=== PATIENT | male | born 1965 | race Caucasian/White ===

== ENCOUNTER 2024-07-21 01:16 | Day surgery (SDC) | payer OTHER, SELFPAY ==
[2024-07-19 13:03] VITALS: BMI 21.4
--- NOTE | 2024-07-19 13:13 | PC.NURSE ---
Report to the Outpatient Waiting Room, entrance under the green pavilion located off [facility], at time _1pm_ on date _[id number]_. Planned Procedure Time: _3pm_.? Time changes happen often and if your time is changed the preop area will call you the afternoon before. - You and your visitor will be asked to self-screen and do not enter if you have any COVID symptoms. Please call surgeon if you need to reschedule. - A mask is optional within the hospital at this time. Patients may have clear liquids (water, carbonated beverages, clear teas, apple juice) until 3 hours prior to surgery with a maximum of 20 ounces. - No food from midnight until time of surgery and no smoking, or chewing tobacco (or any form of nicotine). No chewing gum, candy or mints. Take only the following medications with a SIP of water on the morning of surgery: ___None____ DO NOT STOP ANY OF YOUR OTHER PRESCRIPTION MEDICATIONS PRIOR TO SURGERY EXCEPT THE FOLLOWING Hold all vitamins and supplements for 3 days per anesthesiologist. Medications to discontinue per physician Date to take last dose___Stop now.___ Please no make-up, nail kazakh, hairspray, perfume, deodorant, or body powder the day of surgery.? No jewelry (including any body piercings) or valuables the day of surgery, leave them at home.? Please take a shower or bath the night before, or the morning of, surgery with an antibacterial soap.? Wear comfortable, loose fitting clothing.? - Jewelry must be removed prior to entering the operating room.? Rings and piercings that are not removed may be cut off. - The hospital will not accept responsibility for valuables.? - Please leave all valuables, including medications, at home the day of surgery. If you are going home after surgery, a licensed [facility] driver must drive you home.? - NO public transportation without another adult if you receive anesthesia. - We recommend that an adult stay with you for 24 hours following discharge. - We also recommend that you do not drive, make important decision, drink alcoholic beverages, or take any drugs that were not prescribed by your health care provider for at least 24 hours after your discharge time. Follow any additional instructions given to you from your surgeon. Telephone instructions given to __Sal___and asked if any additional questions and then verbalized understanding. Patient advised to call surgeon office or pre surgery nurse liaison [phone] if any additional questions.
[2024-07-21] VITALS (8 sets, daily range): BP systolic 113–173; BP diastolic 74–90; PULSE 54–68; RESP 12–18; TEMP 36.2–36.7; O2SAT 95–100
--- OUTSIDE RECORDS SUMMARY | 2024-07-21 01:29 | XMS_ITS | Referral Summary ---
Author Organization [facility] Address [address] [place] [address] Care Team Providers Care Files Supervisor Name Role Phone Dionicio Skinner DPT Unavailable [phone] Nash Monterroso MD Primary Care Provider Encounters Date Type Department Care Team Description 07/03/2024 4:42 PM CDT - 07/03/2024 11:59 PM CDT Hospital Encounter [facility] [address] [place] [phone] Discharge Disposition: Discharge to home or self care 07/03/2024 11:10 AM CDT Office Visit [facility] [address] [place] [address] 2nd Floor [address] [place] [phone] Nash Fletcher MD Left knee pain, unspecified chronicity (Primary Dx) 06/27/2024 6:30 AM CDT Telemedicine [facility] [address] [facility] [address] [place] [phone] Colt Brock MD Left without seen 06/06/2024 Orders Only [facility] [address] [place] [address] 2nd Floor [address] [place] [address] Nash Fletcher MD Left knee pain, unspecified chronicity 06/05/2024 3:50 PM CDT Office Visit [facility] [address] [place] [address] 2nd [address] [place] [address] Nash Fletcher MD Left knee pain, unspecified chronicity (Primary Dx) 06/02/2024 Telephone [facility] [address] [place] [address] [address]nd [address] [place] [phone] Nash Fletcher MD 06/01/2024 Telephone [facility] [address] [place] [address] 2nd [address] [place] [phone] Nash Fletcher MD 05/29/2024 7:58 AM CDT - 05/29/2024 11:59 PM CDT Hospital Encounter [facility] [address] [place] [phone] Nash Fletcher MD Left knee pain, unspecified chronicity Discharge Disposition: Discharge to home or self care 05/29/2024 7:50 AM CDT Office Visit [facility] [address] [place] [address] Floor [address] [place] [phone] Nash Fletcher MD Left knee pain, unspecified chronicity (Primary Dx); Right knee pain, unspecified chronicity 05/12/2024 Results Follow-Up [address] [phone] Dorothy Phipps NP Thyroid Function [place], Lipid panel, Hemoglobin A1c, Additional followed-up results: 5 05/10/2024 6:05 PM CDT Lab [facility] ([facility]) [address] [place] [phone] Screening for thyroid disorder; Screening for lipid disorders; Screening for diabetes mellitus; Screening for metabolic disorder; Screening for deficiency anemia; Screening for prostate cancer 05/10/2024 2:45 PM CDT Office Visit [address] [phone] Dorothy Phipps NP Sleep disturbance (Primary Dx); Preventative health care; Erectile disorder; Unequal pupil diameter; Hyperbilirubinemia; Screening for prostate cancer; Aneurysm of descending thoracic aorta without rupture; Need for vaccination; Screening for deficiency anemia; Screening for metabolic disorder; Screening for diabetes mellitus; Screening for lipid disorders; Screening for thyroid disorder from Last 3 Months Allergies No known active allergies Medications sildenafiL (VIAGRA) 25 mg tablet Take 1 tablet (25 mg total) by mouth as needed for erectile dysfunction 4 Active zolpidem (AMBIEN) 5 mg tabletIndication s:Insomnia, unspecified type Take 1 tablet (5 mg total) by mouth nightly as needed for sleep 20 tablet 5 08/14/19 25 Active Hospital, Clinic, or Other Facility Administered Medication Ordered Dose Route Frequency Start Date End Date Status BUPivacaine HCl (MARCAINE) 0.25 % (2.5 mg/mL) injection 5 mLIndications:Left knee pain, unspecified chronicity 5 mL OTHER One-Time Injection 07/03/2024 07/03/2024 Ended triamcinolone (KENALOG) 40 mg/mL injection 40 mgIndications:Left knee pain, unspecified chronicity 40 mg intra-artic One-Time Injection 07/03/2024 07/03/2024 Ended Active Problems Problem Noted Date Diagnosed Date 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 Rpt in 5 yrs. 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): Current on influenza vaccination Lipids and A1C reviewed, both at goal today Weight stable, maintain diet and activity Colonoscopy due Feb 2020, order to be faxed to [facility] Need for prophylactic vaccin ation and inoculation against rabies 08/23/2013 01/26/2022 Immunizations Immunization Administration Dates Next Due Influenza, Quadrivalent, Trudi l Culture-based MDCK, Preservative Free, Antibiotic Free, Intramuscular 11/19/2019 Influenza, Quadrivalent, Spl it, Preservative Free, Intramuscular 12/03/2021,01/06/2021,12/07/2017 Influenza, Trivalent, Preser vative Free, Intramuscular 11/28/2014 Influenza, Unspecified 12/27/2018,10/23/2015 Pfizer SARS-CoV-2 Monovalent Vaccination (12+ Yrs) PURPLE 06/05/2020,05/15/2020 Rabies Vaccine 09/07/2013,08/31/2013,08/23/2013 Tdap 05/10/2024 Social History Tobacco Use Types Packs/Day Years Used Date Smoking Tobacco: Never Smokeless Tobacco: Never PHQ-2 Answer Date Recorded PHQ-2 Total Score (If total score is 3 or more points, staff should administer the PHQ-9) 0 05/10/2024 Sex and Gender Information Value Date Recorded Sex Assigned at Not on file Legal Sex Male 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 Gender Identity Not on file Sexual Orientation Not on file Occupation Industry Job Start Date Job End Date Not on file Not on file Not on file Not on file Last Filed Vital Signs Vital Sign Reading Time Taken Comments Blood Pressure 159/97 05/10/2024 2:33 PM CDT Pulse 53 05/10/2024 2:33 PM CDT Temperature 36.9 C (98.4 F) 05/10/2024 2:33 PM CDT Respiratory Rate 18 04/07/2019 1:42 PM ODD JOB WORKER Oxygen Saturation 99% 05/10/2024 2:33 PM CDT Inhaled Oxygen Concentration - - Weight 71.8 kg (158 lb 6.4 oz) 05/10/2024 2:33 P M CDT Height 179.1 cm (5' 10.5) 05/10/2024 2:33 PM CD T Body Mass Index 22.41 05/10/2024 2:33 PM CDT Plan of Treatment Not on file Procedures Procedure Name Priority Date/Time Associated Diagnosis Comments MARLENI MR OUTSIDE REFERENCE Routine 07/03/2024 4:42 PM CDT [place] ARTHROCENTESIS ASPIR&/INJ MAJOR JT/BURSA W/O US Routine 07/03/2024 11:10 AM CDT Left knee pain, unspecified chronicity MRI KNEE LEFT WO CONTRAST Schedule Routine, Read Routine (OP Routine) 06/06/2024 10:50 AM CDT Left knee pain, unspecified chronicity XR KNEE LEFT 3 VIEWS Schedule Routine, Read Routine (OP Routine) 05/29/2024 8:07 AM CDT Left knee pain, unspecified chronicity EGFR Routine 05/10/2024 3:58 PM CDT Screening for metabolic disorder DIFFERENTIAL AUTO Routine 05/10/2024 3:5 8 PM CDT Screening for deficiency anemia PSA SCREEN Routine 05/10/2024 3:58 PM CDT Screening for prostate cancer CBC WITH AUTO DIFFERENTIAL Routine 05/10/2024 3:58 PM CDT Screening for deficiency anemia COMPREHENSIVE METABOLIC PANEL Routine 05/10/2024 3:58 PM CDT Screening for metabolic disorder HEMOGLOBIN A1C Routine 05/10/2024 3:58 PM CDT Screening for diabetes mellitus LIPID PANEL Routine 05/10/2024 3:58 PM CDT Screening for lipid disorders THYROID FUNCTION CASCADE Routine 05/10/2024 3:58 PM CDT Screening for thyroid disorder HEPATITIS C ANTIBODY Routine 01/26/2022 4:00 PM ODD JOB WORKER Preventative health care HM COLONOSCOPY Routine 03/21/2020 from Last 3 Months or Most Recently Relevant to Health Maintenance Results * MARLENI MR Outside Reference (07/03/2024 4:42 PM CDT) Impressions LEXII_[facility] - 07/03/2024 4:42 PM CDT These images are for Reference purposes only and have not been reviewed by [facility]. There will be no report generated by a [facility]. Narrative INDIRA_CHEVY_[facility] - 07/03/2024 4:42 PM CDT EXAMINATION: Images For Reference Purposes Only Nash Fletcher MD IMG MRI PROCEDURES Final Result RAD_PACS[facility] * [place] ARTHROCENTESIS ASPIR&/INJ MAJOR JT/BURSA W/O US (07/03/2024 11:10 AM CDT) Narrative Nash Fletcher MD - 07/03/2024 11:10 AM CDT Nash Fletcher MD 07/03/2024 6:41 PM Large Joint Injection: L knee Performed by: Nash Fletcher MD Authorized by: Nash Fletcher MD Procedure Details: Location: Knee Site: L knee Prep: patient was prepped and draped in usual sterile fashion Approach: Superior lateral Medications: 40 mg triamcinolone 40 mg/mL; 5 mL BUPivacaine HCl 0.25 % (2.5 mg/mL) Patient tolerance: Patient tolerated the procedure with difficulty After Betadine prep to the superolateral aspect of the knee, I injected 5 cc of 0.25% bupivacaine and 40 mg of Kenalog. The patient tolerated the procedure well. Nash Fletcher MD IN CLINIC/BEDSIDE ORDERA BLES Final Result * MRI Knee Left WO Contrast (06/06/2024 10:50 AM CDT) Anatomical Region Laterality Modality Lower Extremities Left Magnetic Reson ance Nash Fletcher MD IMG MRI PROCEDURES Final Result * XR Knee Left 3 Views (05/29/2024 8:07 AM CDT) Anatomical Region Laterality Modality Lower Extremities, Knee Left Computed Radiography 05/29/2024 8:12 AM CDT Impressions 05/29/2024 8:12 AM CDT 1. 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 Electronically signed by: Nicola Eddy D.O. Narrative 05/29/2024 8:12 AM CDT EXAMINATION: XR KNEE LEFT 3 VIEWS HISTORY: Left knee pain COMPARISON: None FINDINGS: No acute fracture or dislocation. Mild medial predominant tricompartmental osteoarthritis. No joint effusion. Quadriceps enthesophyte. Procedure Note Nicola Eddy, DO - 05/29/2024 EXAMINATION: XR KNEE LEFT 3 VIEWS HISTORY: Left knee pain COMPARISON: None FINDINGS: No acute fracture or dislocation. Mild medial predominant tricompartmental osteoarthritis. No joint effusion. Quadriceps enthesophyte. IMPRESSION: 1. 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 Electronically signed by: Nicola Eddy D.O. Nash Fletcher MD IMG XR PROCEDURES Final Result * eGFR (05/10/2024 3:58 PM CDT) eGFR 83 >=60 mL/min/1. 73 m2 Comment: Interpretive Data Reference Interval Normal >/= 90 mL/min/1.73m2 Mildly decreased* 60 - 89 mL/min/1.73m2 Mildly to moderately decreased 45 - 59 mL/min/1.73m2 Moderately to severely decreased 30 - 44 mL/min/1.73m2 Severely decreased 15 - 29 mL/min/1.73m2 Kidney Failure < 15 mL/min/1.73m2 *Relative to young adult level Estimated glomerular filtration rate is determined by the 2020 CKD-EPI equation recommended by the National Kidney Foundation (A Unifying Approach to GFR Estimation: Recommendations of the NKF-ASK Task Force on Reassessing the Inclusion of Race in Diagnosing Kidney Disease, JASN 2020). The CKD-EPI equation should not be used for patients with unstable renal function and has not been validated in children and those over 70. Current interpretive data was last reviewed 2020. Blood 05/10/2024 3:58 PM CDT 05/10/2024 4:21 PM CDT us Dorothy Mandi Phipps [facility] LAB BLOOD ORDERABLES Final R esult [facility] [place] [address] * Differential, auto (05/10/2024 3:58 PM CDT) Neutrophil abs 3.4 1.5 - 6.5 K/cumm Imm gran abs 0.0 0.0 - 0.1 K/cumm [facility] Lymphocyte abs 1.5 0.8 - 3.3 K/cumm [facility] Monocyte abs 0.5 0.2 - 0.8 K/cumm [facility] Eosinophil abs 0.2 0.0 - 0.5 K/cumm [facility] Basophil abs 0.0 0.0 - 0.1 K/cumm [facility] Neutrophil pct 61.1 % [facility] Comment: Interpretive Data Percent cell count reference ranges are not reported, since discordance with absolute values may lead to misinterpretation of CBC data. Current Interpretive Data was last revised on 2017. Imm gran pct 0.2 % [facility] Comment: Interpretive Data Percent cell count reference ranges are not reported, since discordance with absolute values may lead to misinterpretation of CBC data. Current Interpretive Data was last revised on 2017. Lymphocyte pct 27.5 % [facility] Comment: Interpretive Data Percent cell count reference ranges are not reported, since discordance with absolute values may lead to misinterpretation of CBC data. Current Interpretive Data was last revised on 2017. Monocyte pct 8.1 % [facility] Comment: Interpretive Data Percent cell count reference ranges are not reported, since discordance with absolute values may lead to misinterpretation of CBC data. Current Interpretive Data was last revised on 2017. Eosinophil pct 2.7 % [facility] Comment: Interpretive Data Percent cell count reference ranges are not reported, since discordance with absolute values may lead to misinterpretation of CBC data. Current Interpretive Data was last revised on 2017. Basophil pct 0.4 % [facility] Comment: Interpretive Data Percent cell count reference ranges are not reported, since discordance with absolute values may lead to misinterpretation of CBC data. Current Interpretive Data was last revised on 2017. Blood 05/10/2024 3:58 PM CDT 05/10/2024 4:12 PM CDT Dorothy Phipps [facility] LAB BLOOD ORDERABLES Final R esult Performing Organization Address City/[facility] Co de Phone Number [facility] Department [place] [address] * Thyroid Function [place] (05/10/2024 3:58 PM CDT) TSH 2.49 0.30 - 4.20 mcIUnit/mL Blood 05/10/2024 3:58 PM CDT 05/10/2024 4:12 PM CDT Dorothy Phipps [facility] LAB BLOOD ORDERABLES Final R esult Performing Organization Address [facility] de Phone Number [facility] Department [place] [address] * PSA screen (05/10/2024 3:58 PM CDT) PSA-Total 2.19 <=3.90 ng/mL Comment: Interpretive Data AGE SEX REFERENCE INTERVAL 0 minutes-150 years Female None 0 minutes-49 years Male None 50-59 years Male 0-3.90 60-69 years Male 0-5.40 70-79 years Male 0-6.20 80-150 years Male 0-6.20 The James PSA Total assay procedure was used. Results from different manufacturers or methods may not be comparable. Serial testing should be performed using the same method. Current interpretive data last revised 21. Blood 05/10/2024 3:58 PM CDT 05/10/2024 4:12 PM CDT Dorothy Phipps [facility] LAB BLOOD ORDERABLES Final R esult Performing Organization Address City/[facility]/ZIP Co de Phone Number [facility] [place] [address] * (ABNORMAL) CBC with auto differential (05/10/2024 3:58 PM CDT) [facility] WBC 5.5 3.8 - 9.9 K/cumm Hgb 14.8 13.0 - 17.5 g/dL [facility] Hct 43.1 38.9 - 50.3 % [facility] Plt 245 150 - 400 K/cumm [facility] MPV 9.0(L) 9.1 - 12.3 fL [facility] RBC 4.87 4.30 - 5.80 M/cumm [facility] MCV 88.5 81.3 - 96.4 fL [facility] MCH 30.4 27.1 - 33.3 pg [facility] MCHC 34.3 32.3 - 35.7 g/dL [facility] RDW CV 13.3 11.1 - 14.9 % [facility] RDW SD 43.4 35.7 - 48.1 fL [facility] NRBC abs 0.00 0.00 - 0.01 K/cumm [facility] Blood 05/10/2024 3:58 PM CDT 05/10/2024 4:12 PM CDT Dorothy Phipps [facility] LAB BLOOD ORDERABLES Final R esult Performing Organization Address City/[facility]/ZIP Co de Phone Number [facility] Department [place] [address] * Hemoglobin A1c (05/10/2024 3:58 PM CDT) [facility] Hgb A1C 5.3 4.0 - 5.6 % Estimated Average Glucose 105 mg/dL [facility] Comment: The ADA recommends reporting an estimated Average Glucose (eAG) with all Hemoglobin A1c results using the equation derived from a study of 507 normal and diabetic adults. Minority populations were underrepresented and children were not included. (Diabetes Care 2020; 43(S1): S66-S76). The eAG is not equivalent to a fasting glucose. Blood 05/10/2024 3:58 PM CDT 05/10/2024 4:12 PM CDT us Dorothy Phipps [facility] LAB BLOOD ORDERABLES Final [facility] esult [facility] [place] [address] * Lipid panel (05/10/2024 3:58 PM CDT) Cholesterol 198 30 - 199 mg/dL Comment: Interpretive Data Ages < or = 19 years Acceptable: <170 mg/dL Borderline high: 170-199 mg/dL High: >or= 200 mg/dL Ages > or = 20 years Desirable: <200 mg/dL Borderline high: 200-239 mg/dL High: >or= 240 mg/dL Literature References: 1. Expert Panel on Integrated Guidelines for Cardiovascular Health and Risk Reduction in Children and Adolescents. Pediatrics 2011;128:S213 2. NCEP Expert Panel. Circulation 2004;110:227 Current Interpretive Data was last revised on 2017. Triglycerides 64 <=149 mg/dL [facility] Comment: Interpretive Data Ages < or = 9 years Acceptable: <75 mg/dL Borderline high: 75-99 mg/dL High: >or= 100 mg/dL Ages 10 to 20 years Acceptable: <90 mg/dL Borderline high: 90-129 mg/dL High: >or= 130 mg/dL Ages > or = 20 years Desirable: <150 mg/dL Borderline high: 150-199 mg/dL High: 200-499 mg/dL Very high: >or= 499 mg/dL Literature References: 1. Expert Panel on Integrated Guidelines for Cardiovascular Health and Risk Reduction in Children and Adolescents. Pediatrics 2011;128:S213 2. NCEP Expert Panel. Circulation 2004;110:227 Current Interpretive Data was last revised on 2017. HDL 88 >=40 mg/dL [facility] Comment: Interpretive Data Ages < or = 19 years Acceptable: >45 mg/dL Borderline low: 40-45 mg/dL Low: <40 mg/dL Ages > or = 20 years Desirable: >or= 60 mg/dL Low: <40 mg/dL Literature References: 1. Expert Panel on Integrated Guidelines for Cardiovascular Health and Risk Reduction in Children and Adolescents. Pediatrics 2011;128:S213 2. NCEP Expert Panel. Circulation 2004;110:227 Current Interpretive Data was last revised on 2017. LDL, calculated 98 <=129 mg/dL [facility] Comment: Interpretive Data Ages < or = 19 years Acceptable: <110 mg/dL Borderline high: 110-129 mg/dL High: >or= 130 mg/dL Ages > or = 20 years Optimal: <100 mg/dL Near optimal: 100-129 mg/dL Borderline high: 130-159 mg/dL High: >160 mg/dL Calculated using the Jaciel LDL-C estimating equation. This equation was implemented on 2023. Prior to this date LDL-C was estimated using the Friedewald equation. Literature References: 1. Expert Panel on Integrated Guidelines for Cardiovascular Health and Risk Reduction in Children and Adolescents. Pediatrics 2011;128:S213 2. NCEP Expert Panel. Circulation 2004;110:227 3. Jaciel Joseph et al. DEBRA Cardiol. 2019June 15;5(5):540-548. doi: 10.1001/jamacardio.2020.0013 Current Interpretive Data was last revised on 2023. Non-HDL Cholesterol 110 mg/dL [facility] Comment: Interpretive Data Ages < or = 19 years Acceptable: <120 mg/dL Borderline high: 120-144 mg/dL High: >145 mg/dL Ages > or = 20 years When triglycerides are >200 mg/dL, Non-HDL cholesterol is a secondary target of therapy with treatment goals that are 30 mg/dL greater than the LDL cholesterol target. Literature References: 1. Expert Panel on Integrated Guidelines for Cardiovascular Health and Risk Reduction in Children and Adolescents. Pediatrics 2011;128:S213 2. NCEP Expert Panel. Circulation 2004;110:227 Current Interpretive Data was last revised on 2017. Chol/HDL ratio 2 [facility] Blood 05/10/2024 3:58 PM CDT 05/10/2024 4:12 PM CDT [place] Raymond Desire [facility] LAB BLOOD ORDERABLES Final R esult [facility] [place] [address] * (ABNORMAL) Comprehensive metabolic panel (05/10/2024 3:58 PM CDT) Sodium 140 135 - 145 mmol/L Potassium, pl 4.6 3.3 - 4.9 mmol/L [facility] Chloride 104 97 - 110 mmol/L [facility] CO2 28 22 - 32 mmol/L [facility] Anion gap 8 2 - 15 mmol/L [facility] BUN 19 6 - 25 mg/dL [facility] Creatinine 1.04 0.80 - 1.30 mg/dL [facility] Glucose 90 70 - 199 mg/dL [facility] Comment: Interpretive Data Fasting glucose >/= 126 mg/dl is diagnostic for diabetes. Fasting is defined as no caloric intake for at least 8 hours. Fasting glucose between 100 mg/dl to 125 mg/dl is diagnostic of prediabetes. In a patient with classic symptoms of hyperglycemia or hyperglycemic crisis, a random glucose >/= 200 mg/dl is diagnostic for diabetes. In the absence of unequivocal hyperglycemia, results should be confirmed by repeat testing. The classification and Diagnosis of Diabetes Diabetes Care 2021; 46: S19-S40. Current interpretive data was last revised 2022. Calcium 9.3 8.5 - 10.3 mg/dL [facility] Bilirubin, total 1.5(H) 0.1 - 1.2 mg/dL [facility] Protein, pl 7.4 6.5 - 8.5 g/dL [facility] Albumin 4.4 3.5 - 5.0 g/dL [facility] Alk phos 99 40 - 130 Units/L [facility] ALT 21 7 - 55 Units/L [facility] AST 24 10 - 50 Units/L [facility] Blood 05/10/2024 3:58 PM CDT 05/10/2024 4:12 PM CDT us Dorothy Phipps NP LAB BLOOD ORDERABLES Final R esult Performing Organization Address City/[facility]/ZIP Co de Phone Number [facility] [place] [address] * Hepatitis C antibody (01/26/2022 4:00 PM ODD JOB WORKER) Hep C Ab Nonreactive Nonreactive [facility] Comment:Antibodies to HCV no t detected. Does NOT exclude the possibility of recent exposure to HCV. Current interpretive data was last revised on 21 Blood 01/26/2022 4:00 PM ODD JOB WORKER 01/26/2022 5:45 PM ODD JOB WORKER Nash Monterroso MD LAB MICROBIOLOGY - GEN ERAL ORDERABLES Final Result Performing Organization Address [facility] Co de Phone Number [facility] [place] [address] * COLONOSCOPY (03/21/2020) Colonoscopy Abnormal Historical Provider HEALTH MAINTENANCE Final Result from Last 3 Months or Most Recently Relevant to Health Maintenance Insurance [employer] [place] [address] [employer] [place] [address] [employer] Member Subscriber Plan / Payer (Ef fective 2020-Present) Name:Sal Henderson Relation to Subscriber:Spouse Name:MATIAS ESCALERA Date of :1974 (Home) Address: [address] [place] [phone] Payer ID:[id number] (NAIC) Type:[facility] H[facility]/PPO Address: [place] [phone] Care Teams Files Supervisor Relationship Specialty Start Date End Date Nash Monterroso MD [address] [address] PCP - General Internal Medicine 12/31/21 Dionicio Skinner DPT Physical Therapist Physical Therapy 09/13/18
--- OUTSIDE RECORDS SUMMARY | 2024-07-21 01:29 | XMS_ITS | Data Portability ---
Author Organization [place] [facility] - Address [address] [place] [address] Assessment Encounter Date Assessment Date Assessment LastModified by Organization Details LastModified Time 09/28/2022 09/28/2022 Treatment today provided by student doctor Isra Pete (MS-III) under the personal supervision of Dr. Pedro Interiano. Treatment consisted of the following: - Patient evaluation. Discussed findings and impressions with the patient. - Pain isolated to posterior heel, the calcaneus - Ferguson test was negative. - Instructed patient to wear supportive shoegear at all times when ambulating. - Attending physician discusses the importance of obtaining an MRI for understanding the degree of severity of the deformity. - Prescription written for MRI for the patient. Patient was consulted at length regarding the goals, risks, and benefits of surgical intervention and the most common complications including delayed healing, mal position, infection, numbness, swelling, DVT, and residual pain and possible need for revisional surgery. Also discussed were idiosyncratic risks such as loss of limb and/or associated with adverse reactions to medications, anesthesia, VTE, or infection were discussed at length with the patient. Expectations and goals of return to weightbearing/wo rk/school time were discussed as tentative and somewhat variable upon patient's symptomatology postoperatively. Patient was encouraged to call or present to the office or my personal cell phone number if there are any unanswered questions. The patient understands that one prescription for pain medication will be dispensed at the time of surgery only if needed. If they need a second prescription, they will receive a pain management referral at that time, along with the refill, and there will be no further narcotic pain medication dispensed after the one refill. Patient does wish to proceed with planned surgical intervention at the conclusion of this conversation. Significant time was spent filling out, and orally reiterating all printed preoperative paperwork and fully explaining intended procedure in layman's terms as well as confirming laterality. Patient denied having further questions at this time regarding the intended surgical procedure(s). Not available 09/28/2022 09:41:57 Plan of Treatment Reminders Order Date Submit Date Provider Last Modified By Organization Details Last Modified Time Details Appointments None record ed. Lab None record ed. Referral None record ed. Procedures None record ed. Surgeries None record ed. Imaging None record ed. Medication Orders None record ed. Patient TargetsNo targets recorded. Patient InstructionsNo instructions recorded. Reason for Referral None Reported. Results Created Date Observation Date Name Description Value Unit Range Abnormal Flag Note LastModifiedBy Organization Detail LastModifiedTime 10/03/1909/30/2022 MRI, foot, w/o contr ast No observ ation record ed. dehredt [facility] [address] [facility], [place], [address], 10/05/2022 20:11:41 Result Notes None recorded. Problems No Known Problems Procedures Surgical History Date Name Laterality Status Provider Name and Address Organization Details Recorded Time 2 achillotomy completed [facility] 09/28/2022 08:36:46 5 Remove tonsils and adenoids completed [facility] 09/28/2022 08:36:12 Imaging Results None recorded. Procedure Notes None recorded. Medical Equipment None Reported. Allergies No known drug allergies Medications Name Sig Start Date Stop Date Status Note LastModified by Organization Details LastModified Time tramadol 50 mg tablet 09/28 completed Not Available Not Available Not Available ondansetron 8 mg disintegrat ing tablet 09/28 completed Not Available Not Available Not Available oxycodone-a cetaminophe n 5 mg-325 mg tablet 09/28 completed Not Available Not Available Not Available methylpredn isolone 4 mg tablets in a dose pack FOLLOW PACKAGE DIRECTION S 09/28 completed Not Available Not Available Not Available azithromyci n 500 mg tablet TAKE 1 TABLET BY MOUTH FOR 5 DAYS 09/28 completed Not Available Not Available Not Available Vitals Date Recorded Body temperature Heart rate Oxygen saturation Oxygen saturation in Arterial blood by Pulse oximetry Body weight Body mass index (BMI) Body height Systolic blood pressure Diastolic blood pressure Provider Name and Address Organization Details Last Updated DateTime 3 96.6 [degF] 55 /min 98 % 98 % 24822.3 3 g 22.5 kg/m2 182.88 cm 138 mm[Hg] 90 mm[Hg] Isra Pete [facility] 08:27:50 Social History Question Answer Notes LastModified by [employer] Details LastModified Time Tobacco Smoking Status Never Smoker Isra Pete day [facility] 09/28/2022 08:39:39 In The 14 Days Before Symptom Onset, Have You Had Close Contact With A Laboratory-confirm ed COVID-19 While That Case Was Ill? No Information n ot available 09/28/2022 In The 14 Days Before Symptom Onset, Have You Had Close Contact With A Person Who Is Under Investigation For COVID-19 While That Person Was Ill? No [email or web address] Information not available 09/28/2022 Have You Been To An Area Known To Be High Risk For COVID-19? No Information not available 09/28/2022 Who Is Your Employer? [employer] [email or web address] Information not available 09/28/2022 What Is Your Relationship Status? [email or web address] Information not available 09/28/2022 Sex: Unknown Functional Status Question Answer Note LastModified by [employer] Details LastModified Time Do you use any illicit or recreational drugs? No [email or web address] Information not available 09/28/2022 Do you or have you ever used any other forms of tobacco or nicotine? No Information not available 09/28/2022 What is your level of alcohol consumption? Occasional [email or web address] Information not available 09/28/2022 Are you currently employed? Yes Information not available 09/28/2022 What is your occupation? [employer] [email or web address] Information not available 09/28/2022 Mental Status None recorded. Family History Nothing Reported. Medical History Condition Response Gout N Bipolar disorder N Hyperthyroidism N Prostate disorders N Sarcoidosis N Depression N Glaucoma N Hypothyroidism N Radiculopathy/Sciatic nerve pain N Peripheral Arterial Disease N Psychiatric disorders N Congestive Heart Failure N Psoriatic arthritis N Eye disorders N Varicose Veins N Gastrointestinal disorders N Chemotherapy/radiation of malignancy N Mota Bite N Cancer N Hearing impaired N Leg or Foot Ulcers N Ear, nose, or throat disorders N Polio N Liver Disease N Lymphedema N Organ Transplant N Rheumatoid Arthritis N Schizophrenia N Dialysis N Fibromyalgia N Foot Deformity N Headaches N Kidney Disease N Venous Insufficiency N Osteoarthritis N Pneumonia, history of N Herpes zoster/shingles N Anemia N Sickle cell anemia N SLE N Diabetes mellitus N Crohn's disease N COPD/emphysema N Bleeding Disorder N Seizures/Epilepsy N Sjogren's syndrome N Tuberculosis N Multiple sclerosis N AIDS/HIV N Hyperlipidemia N Asthma N Ulcerative colitis N Intellectual disability N Substance Abuse N Psoriasis N Deep venous thrombosis N Sight impaired/legally blind N Stroke/CVA N Hepatitis N Myocardial infarction N Coronary artery disease N Hypertension N Osteoporosis N Past Encounters Encounter ID Performer Location Encounter Start Date Encounter Closed Date Diagnosis/Indication Diagnosis SNOMED-CT Code Diagnosis ICD10 Code Diagnosis Note [id number] Pedro Interiano DPM [facility] [address] [place] [address] 09/28/2022 08:14:38 09/28/2022 11:06:34 Rupture of right Achilles tendon [id number] 2481919 S86.091A Attending Note: Agree with above. Mr. 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 I did personally review his plain films and old MRIs. I do think he is a good candidate for the ECP procedure, possibly with a PARs brace support but he needs an updated MRI. The last imaging was from 2019. If he has significan t tendinosis then he may need it opened up, but otherwise he would fair well with ECP. I will order this and coordinate with him via email for surgical scheduling . We did undergo a full surgical consultati on today and informed consent was obtained. I will book either way pending the imaging. Calcaneal spur of right foot [id number] 48993 M77.31 Acquired s hort Achilles tendon 1401910 M67.01 Health Concerns Section Related Observation LastModified by Organization Detai ls LastModified Time None Recorded Concern Status LastModified by Organization Details LastModified Time None Recorded Advance Directives Directive None Recorded Payers Encounter Date Sequence Insurance Name Policy Number Policy Maldonado Covered Member ID Maldonado Member ID Guarantor Name 09/28/2022 1 [facility] [id number] Svetlana Escalera [id number] Sal Henderson Notes Date Note Type Note Provider Name a nd Address Organization Details Recorded Time 3 text/html This patient presents to clinic complaining of pain on the posterior heel on the right foot. Patient states the pain is located at the posterior heel of the left foot. The pain began in July of 2021 and is progressively worsening. The pain is sharp in nature like a knife and 2/10 on the pain scale with light pressure and more severe with pressure. The pain is alleviated with non-ambulation and aggravated with pressure and ambulation, especially with exercise. Treatment has consisted of a Medrol dosepak used in August with no success, also using Voltaren gel for the pain relief with some relief. Patient states potential osteoarthritis on the left first MPJ. Patient denies any other pedal complaints. Pt Notes.Right heel pain that feels like a knife. Refused surgery requiring tendon attachment. Interested in surgery with bone spur without detaching the tendon. X-rays were sent to [facility]. Pain started July 2021, before rupture. Pain 1-2 with with palpation or greater with pressure. Used methylprednisolone dose pack for relief with no success. Pedro Interiano, LIANA [address] [place], [address], [facility] 09/28/2022 12:24:57
--- OUTSIDE RECORDS SUMMARY | 2024-07-21 01:29 | XMS_ITS | Patient Health Record ---
Author Organization [facility] Address [address] [place] [address] Care Team Providers Care Bridge Repairer Name Role Phone Odell Harrison MD Primary Care Provider Josep Kebede Unavailable [phone] Allergies No Known Allergies Reason For Referral No Information Medications Medication SIG (Take, Route, Frequency, Duration) Notes Start Date End Date Status Ketorolac Tromethamine Not-Taking Ketorolac Tromethamine 0.5 % null Diagnosis Unavailable Ophthalmic for 7 Not-Taking Social History Tobacco Use: Social History Observation Description Date Details (start date - stop date) Never Smoker NA - NA Tobacco Use/Smoking Question Answer Notes Tobacco use: nonsmoker Plan Of Treatment No Information Insurance Providers Payer Name Payer Address Payer Phone Subscriber Number Group Number Insured Name Patient Relationship to Insured Coverage Start Date Coverage End Date [facility] [address] [place], [place] [id number] Svetlana Olivier Spouse - patient is the spouse of the insured Medical (General) History Medical History History ICD Code none reported Surgical History Surgery Date(Month/Year) Tonsillectomy,
--- OUTSIDE RECORDS SUMMARY | 2024-07-21 01:29 | XMS_ITS | Continuity of Care Document ---
Author Organization [facility] Address [id number] [place] [address] [address] [place] [address] Phone Care Team Providers Care Roustabout Crew Leader Name Role Phone Elroy BENDER MD, Eros Unavailable Unavailab le Allergies, Adverse Reactions, Alerts Substance Reaction Status Criticality No Known allergies Procedures Procedure Date OFFICE/OUTPATIENT VISIT, [facility] SPECIAL EYE EXAM, INITIAL SPECIAL EYE EXAM, INITIAL Advance Directives Directive Yes / No Effective Date File Name No Information Encounters Encounter Description Practice Location Reason(s) For Visit Diagnoses Date Provider Providers Copied on Encounter OFFICE/OUTPAT IENT VISIT, [facility], [address], [place], [place], [id number], [place] tel:[phone] CONSULT AMINAH GONZALEZ Vitreous degeneration 3 Elroy Cooney. [address] [facility] [address] [facility] [address] [facility], [place], [place], [address] , [place]. tel:[phone] Referring Provider: Eros Abbasi MD P, [address] [facility] [address], [place], [address] . tel:[phone] Family History Family Member Type Diagnosis Age At Onset No Information Payers Payer name Insurance type Covered green party ID Nate leo(s) [employer] CI [id number] Social History Type Description Quantity Date Captured Comments Alcohol Use Details Caffeine Use Details Unknown Tobacco Use Status No Information Smoking Status Never smoker Sex Male Chief Complaint And Reason For Visit No Information Reason For Referral Reason For Referral No Information History Of Present Illness Encounter Date Complaint History Of Prese nt Illness No Information Functional Status Date Functional Assessmen t No Information Instructions Date Instruction Additional Infor lizeth - Return in 1 year w aspen Abbasi MD for Complete Exam. Related to Vitreous Detachment Vitreous Detachment OD-h/o hyphema, old baseball injury when 14, recommend yearly IOP check - Posterior vitreous detachment accounts for the patient's complaints. There is no evidence of retinal pathology. All signs and risks of retinal detachment and tears were discussed in detail. Patient instructed to call the office immediately if any symptoms noted. Recommend the patient return to office for follow up. Educational materials provided:Flashers/floaters. Related to Vitreous Detachment Assessments Type Assessment Date No Information Patient Care Teams Name Effective Dates (start - stop) Status Members No Information
--- OUTSIDE RECORDS SUMMARY | 2024-07-21 01:29 | XMS_ITS | Continuity of Care Document ---
Author Organization [facility] Address [address] [place] [address] Phone Care Team Providers Care Eyeglass Fitter Name Role Phone Xavire Pichardo MD Unavailable Unavailable Allergies, Adverse Reactions, Alerts Substance Reaction Status Criticality No Known Allergies Active No Inform ation Medications Medication Instructions Dosage Effective Dates (start - stop) Status Comments No Drug Therapy Prescribed Procedures Procedure Date OFFICE CONSULTATION Advance Directives Directive Yes / No Effective Date File Name No Information Encounters Encounter Description Practice Location Reason(s) For Visit Diagnoses Date Provider Providers Copied on Encounter [facility], [address], [place], [address], [place] tel:[phone] [facility] No Information 7 Marino Park. [address], [place], [place], [address] . tel: [phone] OFFICE CONSULTATION [facility], [address], [place], [address], [place] tel:[phone] [facility] Vaibhav r knee pain (chief complaint) Acute knee pain 4 Oracio Hebert. [address], [place], [place], [address] . tel: [phone] Referring Provider: Cornelio Mccauley, [address], [place], [address]. tel:[phone] Family History Family Member Type Diagnosis Age At Onset No Information Payers Payer name Insurance type Covered republican ID Authoriza tion(s) No Information Social History Type Description Quantity Date Captured Comments Sex Male Smoking Status No Information Chief Complaint And Reason For Visit No Information Reason For Referral Reason For Referral No Information Plan Of Treatment Date Type Action Status Referral Ordered: RADEX KNE COMPL 4/MORE VIEWS RT ordered History Of Present Illness Encounter Date Complaint History Of Prese nt Illness r knee pain Functional Status Date Functional Assessmen t No Information Medications Administered Medication Instructions Dosage Effective Dates (start - stop) Status Comments No Drug Therapy Prescribed Instructions Date Instruction Additional Infor mation No Information Assessments Type Assessment Date No Information Patient Care Teams Name Effective Dates (start - stop) Status Members No Information
--- OUTSIDE RECORDS SUMMARY | 2024-07-21 01:29 | XMS_ITS | Continuity of Care Document ---
Author Organization [facility] Address [address] [place] [address] Phone Care Team Providers Care Wheel Truing Machine Tender Name Role Phone Patricia Mays Unavailable Unavailable Procedures Procedure Date Therapeutic Activities Therapeutic Exercise Manual Therapy Therapeutic Activities Therapeutic Exercise Manual Therapy Therapeutic Activities Therapeutic Exercise Manual Therapy Therapeutic Activities Neuromuscular Re-Ed Manual Therapy Therapeutic Exercise PT Evaluation Low Complexity Therapeutic Activities Therapeutic Exercise Manual Therapy THERAPEUTIC EXERCISES NEUROMUSCULAR RE-ED FUNC ACTIVITY THERAPEUTIC EXERCISES NEUROMUSCULAR RE-ED PT EVALUATION THERAPEUTIC EXERCISES MANUAL THERAPY HOT/COLD PACK ELECTRIC STIMULATION UNATT Advance Directives Directive Yes / No Effective Date File Name No Information Encounters Encounter Description Practice Location Reason(s) For Visit Diagnoses Date Provider Providers Copied on Encounter [facility], [address] [place], [place] [address], [place], [address], tel:[phone] [place] No Information 3 Coy Patricia. [address] [place] [address], [address], [facility], . tel:[phone] Referring Provider: Elvis Hicks, [address] [facility] [address], [address]. tel:[phone] [address], [place], [address], tel:[phone] [place] No Information 3 Coy Patricia. [address] [place] [address], [facility] [address], [place], [facility], . tel:[phone] Referring Provider: Elvis Hicks, [address] [facility] [place] [address], [address]. tel:[phone] [address], [place], [address], tel:[phone] [place] No Information 3 Coy Patricia. [address] [place] [address], [facility] [address], [place], [facility], . tel:[phone] Referring Provider: Elvis Hicks, [address] [facility] [address], [address]. tel:[phone] [address] [address], [place], [address], tel:[phone] [place] No Information 3 Coy Patricia. [address] [place] [address], [facility] [address], [place], [facility], . tel:[phone] Referring Provider: Elvis Hicks, [address] [facility] [address] [address], [address]. tel:[phone] [place] [address] [facility] [address], [place], [id number], tel:[phone] [place] No Information 3 Zbigniew Gomez. [address] [place] [address], [address] [address], . tel:[phone] Referring Provider: Elvis Hicks, [address], [place], [address]. tel:[phone], [address], tel:[phone] [facility] No Information 6 Deepika Meehan. [address] [place] [address], [address] [address], . tel:[phone] [facility] [address] [place], [place] [address], [place], [address], tel:[phone] [facility] No Information 6 Deepika Meehan. [address] [place] [address], [address] [address], . tel:[phone] [facility] [address] [place] [address], [id number], tel:[phone] [facility] Muscle weakness (generalized)S tiffness of unspecified joint, not elsewhere classifiedLow back pain 6 Frances Garnica. [address] [place] [address], [facility] [address] [address], . tel:[phone] Family History Family Member Type Diagnosis Age At Onset No Information Payers Payer name Insurance type Covered alliance party ID Tonyaa emmaonesimo(s) [facility] CI [id number] Social History Type Description Quantity Date Captured Comments Sex Male Smoking Status No Information Chief Complaint And Reason For Visit No Information Reason For Referral Reason For Referral No Information Plan Of Treatment Date Type Action Status Referral Ordered: Weight management: Referral to physician timeframe: 1 Month. (related to Overweight) ordered Referral Ordered: PCP timeframe: 1 week. (related to Overweight) ordered History Of Present Illness Encounter Date Complaint History Of Prese nt Illness No Information Functional Status Date Functional Assessmen t No Information Instructions Date Instruction Additional Infor mation No Information Assessments Type Assessment Date No Information Patient Care Teams Name Effective Dates (start - stop) Status Members No Information
--- OUTSIDE RECORDS SUMMARY | 2024-07-21 01:29 | XMS_ITS | Clinical Summary ---
Author Organization [facility] Address [address] [place] [address] Care Team Providers Care Photoengraving Etcher Apprentice Name Role Phone Dionicio Skinner DPT Unavailable [phone] Nash Monterroso MD Primary Care Provider Allergies No known active allergies Medications sildenafiL [...] 01/26/2022 Assessment & Plan (12/28/2019 3:34 PM MANAGEMENT RECRUITER): Current on influenza vaccination Lipids and A1C reviewed, both at goal today Weight stable, maintain diet and activity Colonoscopy due Feb 2020, order to be faxed to [facility] for prophylactic vaccin ation and inoculation against rabies 08/23/2013 01/26/2022 Encounters Date Type Department Care Team Description 07/03/2024 4:42 PM CDT - 07/03/2024 11:59 PM CDT Hospital Encounter [facility] [address] [place] [id number] Discharge Disposition: Discharge to home or self care 07/03/2024 11:10 AM CDT Office Visit [facility] [address] [place] [address] 2nd Floor [address] [place] [address] Nash Fletcher MD Left knee pain, unspecified chronicity (Primary Dx) 06/27/2024 6:30 AM CDT Telemedicine [facility] [address] [facility] Medical Office Building [address] [place] [phone] Colt Brock MD Left without seen 06/06/2024 Orders Only [facility] [address] [place] [address] 2nd Floor [address] [place] [phone] Nash Fletcher MD Left knee pain, unspecified chronicity 06/05/2024 3:50 PM CDT Office Visit [facility] [address] [place] [address] 2nd [address] [place] [phone] Nash Fletcher MD Left knee pain, unspecified chronicity (Primary Dx) 06/02/2024 Telephone [facility] [address] [place] [address] Floor [address] [place] [phone] Nash Fletcher MD 06/01/2024 Telephone [facility] [address] [place] [address] Floor [address] [place] [phone] Nash Fletcher MD 05/29/2024 7:58 AM CDT - 05/29/2024 11:59 PM CDT Hospital Encounter [facility] [address] [place] [phone] Nash Fletcher MD Left knee pain, unspecified chronicity Discharge Disposition: Discharge to home or self care 05/29/2024 7:50 AM CDT Office Visit [facility] [address] [place] [address] Floor [address] [place] [phone] Nash Fletcher MD Left knee pain, unspecified chronicity (Primary Dx); Right knee pain, unspecified chronicity 05/12/2024 Results Follow-Up [address] [place] [address] Dorothy Phipps NP Thyroid Function Butler, Lipid panel, Hemoglobin A1c, Additional followed-up results: 5 05/10/2024 6:[address] [facility] [address] [place] [phone] Screening for thyroid disorder; Screening for lipid disorders; Screening for diabetes mellitus; Screening for metabolic disorder; Screening for deficiency anemia; Screening for prostate cancer 05/10/2024 2:45 PM CDT Office Visit [address] [phone] Dorothy Phipps NP Sleep disturbance (Primary Dx); Preventative health care; Erectile disorder; Unequal pupil diameter; Hyperbilirubinemia; Screening for prostate cancer; Aneurysm of descending thoracic aorta without rupture; Need for vaccination; Screening for deficiency anemia; Screening for metabolic disorder; Screening for diabetes mellitus; Screening for lipid disorders; Screening for thyroid disorder from Last 3 Months Immunizations Immunization Administration Dates Next Due Influenza, Quadrivalent, Trudi l Culture-based MDCK, Preservative Free, Antibiotic Free, Intramuscular 11/19/2019 Influenza, Quadrivalent, Spl it, Preservative Free, Intramuscular 12/03/2021,01/06/2021,12/07/2017 Influenza, Trivalent, Preser vative Free, Intramuscular 11/28/2014 Influenza, Unspecified 12/27/2018,10/23/2015 Pfizer SARS-CoV-2 Monovalent Vaccination (12+ Yrs) PURPLE 06/05/2020,05/15/2020 Rabies Vaccine 09/07/2013,08/31/2013,08/23/2013 Tdap 05/10/2024 Surgical History Surgery Date Site/Laterality Comments ACHILLES TENDON REPAIR 12/08/[address] Elvis Skinner TONSILLECTOMY 02/15/1971 - 02/15/1972 Bilateral Medical History Medical History Date Comments Clavicular fracture 1982 right Achilles rupture, left 2021 Wrist fracture 1977 left Family History Medical History Relation Name Comments Alzheimer's disease Father Cuco Hearing loss Father Cuco Memory loss Father Cuco Parkinsonism Father Cuco Alzheimer's disease Father's Sister COPD Maternal Grandfather + tob No Known Problems Maternal Grandmother No Known Problems Mother Heart attack Paternal Grandfather ? No Known Problems Paternal Grandmother Lupus Sister 1 Breast cancer Sister 2 No Known Problems Sister 3 Colon cancer Neg Hx Prostate cancer Neg Hx Relation Name Status Comments Father Cuco Alive Father's Sister Maternal Grandfather Maternal Grandmother Mother Alive Paternal Grandfather Paternal Grandmother Sister 1 Alive Sister 2 Alive Sister 3 Alive Social History Tobacco Use Types Packs/Day Years Used Date Smoking Tobacco: Never Smokeless Tobacco: Never PHQ-2 Answer Date Recorded PHQ-2 Total Score (If total score is 3 or more points, staff should administer the PHQ-9) 0 05/10/2024 Sex and Gender Information Value Date Recorded Sex Assigned at Not on file Legal Sex Male 7:34 PM MANAGEMENT RECRUITER Gender Identity Not on file Sexual Orientation Not on file Occupation Industry Job Start Date Job End Date Not on file Not on file Not on file Not on file Obstetrics History Last Filed Vital Signs Vital Sign Reading Time Taken Comments Blood Pressure 159/97 05/10/2024 2:33 PM CDT Pulse 53 05/10/2024 2:33 PM CDT Temperature 36.9 C (98.4 F) 05/10/2024 2:33 PM CDT Respiratory Rate 18 04/07/2019 1:42 PM MANAGEMENT RECRUITER Oxygen Saturation 99% 05/10/2024 2:33 PM CDT Inhaled Oxygen Concentration - - Weight 71.8 kg (158 lb 6.4 oz) 05/10/2024 2:33 P M CDT Height 179.1 cm (5' 10.5) 05/10/2024 2:33 PM CD T Body Mass Index 22.41 05/10/2024 2:33 PM CDT Plan of Treatment Health Maintenance Due Date Last Done Comments Hepatitis B Screening 1983 Zoster Vaccine (1 of 2) 2015 Covid-19 Vaccine ( season) 2023 01/20/2021, 06/05/2020, 05/15/2020 Influenza Vaccine (Season Ended) 2024 12/03/2021, 01/06/2021, 11/19/2019, Additional history exists Colon Cancer Screening-Colonoscopy 03/21/2025 03/21/2020 Depression Screening 05/10/2025 05/10/2024, 01/27/20 22 Regular Well Visit/Exam 18-64 05/10/2025 05/10/2024, 05/10/2024, 01/26/2022, Additional history exists Prostate Cancer Screening-PSA 05/10/2026 05/10/2024, 01/26/2022, 12/28/2019 DTaP/Tdap/Td Vaccine (2 - Td or Tdap) 05/10/2034 05/10/2024 Colon Cancer Screening-CT Colonography Discontinued 03/21/2020 Colon Cancer Screening-DNA Stool Discontinued 03/21/2020 Colon Cancer Screening-FIT Discontinued 03/21/2020 Colon Cancer Screening-Sigmoidoscopy Discontinued 03/21/2020 Hepatitis C Screening Completed 01/26/2022 Pneumococcal vaccine <65 Aged Out No longer eligible based on patient's age to complete this topic Procedures Procedure Name Priority Date/Time Associated Diagnosis Comments MARLENI MR OUTSIDE REFERENCE Routine 07/03/2024 4:42 PM CDT MD ARTHROCENTESIS ASPIR&/INJ MAJOR JT/BURSA W/O US Routine [...] HEPATITIS C ANTIBODY Routine 01/26/2022 4:00 PM MANAGEMENT RECRUITER Preventative health care HM COLONOSCOPY Routine 03/21/2020 from Last 3 Months or Most Recently Relevant to Health Maintenance Results * MARLENI MR Outside Reference (07/03/2024 4:42 PM CDT) Impressions [facility] - 07/03/2024 4:42 PM CDT These images are for Reference purposes only and have not been reviewed by [facility]. There will be no report generated by a [facility] Radiologist. Narrative [facility] - 07/03/2024 4:42 PM CDT EXAMINATION: Images For Reference Purposes Only Nash Fletcher MD IMG MRI PROCEDURES Final Result [id number] * MD ARTHROCENTESIS ASPIR&/INJ MAJOR JT/BURSA W/O US (07/03/2024 [...] 4:21 PM CDT us Dorothy Mandi Phipps PROTECTOR PLATE ATTACHER LAB BLOOD ORDERABLES Final R esult [facility] [address] [facility] Department [place] [address] * Differential, auto (05/10/2024 3:58 PM CDT) Pathologist [facility] Neutrophil abs 3.4 1.5 - 6.5 K/cumm Imm gran abs 0.0 0.0 - 0.1 K/cumm [facility] Lymphocyte abs 1.5 0.8 - 3.3 K/cumm [facility] Monocyte abs 0.5 0.2 - 0.8 K/cumm [facility] Eosinophil abs 0.2 0.0 - 0.5 K/cumm [facility] Basophil abs 0.0 0.0 - 0.1 K/cumm [facility] Neutrophil pct 61.1 % [facility] Comment: Interpretive Data Percent cell count reference ranges are not reported, since discordance with absolute values may lead to misinterpretation of CBC data. Current Interpretive Data was last revised on 2017. Imm gran pct 0.2 % [facility] Comment: Interpretive Data Percent cell count reference ranges are not reported, since discordance with absolute values may lead to misinterpretation of CBC data. Current Interpretive Data was last revised on 2017. Lymphocyte pct 27.5 % [facility] Comment: Interpretive Data Percent cell count reference ranges are not reported, since discordance with absolute values may lead to misinterpretation of CBC data. Current Interpretive Data was last revised on 2017. Monocyte pct 8.1 % [facility] Comment: Interpretive Data Percent cell count reference ranges are not reported, since discordance with absolute values may lead to misinterpretation of CBC data. Current Interpretive Data was last revised on 2017. Eosinophil pct 2.7 % [facility] Comment: Interpretive Data Percent cell count reference ranges are not reported, since discordance with absolute values may lead to misinterpretation of CBC data. Current Interpretive Data was last revised on 2017. Basophil pct 0.4 % [facility] Comment: Interpretive Data Percent cell count reference ranges are not reported, since discordance with absolute values may lead to misinterpretation of CBC data. Current Interpretive Data was last revised on 2017. Blood 05/10/2024 3:58 PM CDT 05/10/2024 4:12 PM CDT Dorothy Phipps PROTECTOR PLATE ATTACHER LAB BLOOD ORDERABLES Final R esult Performing Organization Address City/[facility] Co de Phone Number [facility] Department [place] [address] * Thyroid Function Butler (05/10/2024 3:58 PM CDT) TSH 2.49 0.30 - 4.20 mcIUnit/mL Blood 05/10/2024 3:58 PM CDT 05/10/2024 4:12 PM CDT Dorothy Phipps PROTECTOR PLATE ATTACHER LAB BLOOD ORDERABLES Final R esult Performing Organization Address [facility] de Phone Number [facility] Department [place] [address] * PSA screen (05/10/2024 3:58 PM CDT) [...] CDT 05/10/2024 4:12 PM CDT Dorothy Phipps PROTECTOR PLATE ATTACHER LAB BLOOD ORDERABLES Final R esult Performing Organization Address City/[facility]/ZIP Co de Phone Number [facility] [place] [address] * (ABNORMAL) CBC with auto differential (05/10/2024 3:58 PM CDT) [facility] WBC 5.5 3.8 - 9.9 K/cumm Hgb 14.8 13.0 - 17.5 g/dL [facility] Hct 43.1 38.9 - 50.3 % [facility] Plt 245 150 - 400 K/cumm [facility] MPV 9.0(L) 9.1 - 12.3 fL [facility] RBC 4.87 4.30 - 5.80 M/cumm [facility] MCV 88.5 81.3 - 96.4 fL [facility] MCH 30.4 27.1 - 33.3 pg [facility] MCHC 34.3 32.3 - 35.7 g/dL [facility] RDW CV 13.3 11.1 - 14.9 % [facility] RDW SD 43.4 35.7 - 48.1 fL [facility] NRBC abs 0.00 0.00 - 0.01 K/cumm [facility] Blood 05/10/2024 3:58 PM CDT 05/10/2024 4:12 PM CDT Dorothy Phipps PROTECTOR PLATE ATTACHER LAB BLOOD ORDERABLES Final R esult [facility] Department [place] [address] * Hemoglobin A1c (05/10/2024 3:58 PM CDT) [facility] Hgb A1C 5.3 4.0 - 5.6 % Estimated Average Glucose 105 mg/dL [facility] Comment: The ADA recommends reporting an estimated Average Glucose (eAG) with all Hemoglobin A1c results using the equation derived from a study of 507 normal and diabetic adults. Minority populations were underrepresented and children were not included. (Diabetes Care 2020; 43(S1): S66-S76). The eAG is not equivalent to a fasting glucose. Blood 05/10/2024 3:58 PM CDT 05/10/2024 4:12 PM CDT us Dorothy Phipps PROTECTOR PLATE ATTACHER LAB BLOOD ORDERABLES Final R esult [facility] [address] [facility] [address] Department [place] [address] * Lipid panel (05/10/2024 3:58 PM CDT) [...] 2017. Triglycerides 64 <=149 mg/dL [facility] Comment: Interpretive Data Ages < or = [...] on 2017. LDL, calculated 98 <=129 mg/dL [facility] Comment: Interpretive Data Ages < or = [...] NCEP Expert Panel. Circulation 2004;110:227 3. Jaciel M et al. DEBRA Cardiol. 2020 June 15;5(5):540-548. doi: 10.1001/[email or web address].2020.0013 Current Interpretive Data was last revised on 2023. Non-HDL Cholesterol 110 mg/dL [facility] Comment: Interpretive Data Ages < or = [...] last revised on 2017. Chol/HDL ratio 2 [facility] Blood 05/10/2024 3:58 PM CDT 05/10/2024 4:12 PM CDT us Dorothy Raymond Desire PROTECTOR PLATE ATTACHER LAB BLOOD ORDERABLES Final R esult [facility] [address] [facility] Department [place] [address] * (ABNORMAL) Comprehensive metabolic panel (05/10/2024 3:58 PM CDT) Sodium 140 135 - 145 mmol/L Potassium, pl 4.6 3.3 - 4.9 mmol/L [facility] Chloride 104 97 - 110 mmol/L [facility] CO2 28 22 - 32 mmol/L [facility] Anion gap 8 2 - 15 mmol/L [facility] BUN 19 6 - 25 mg/dL [facility] Creatinine 1.04 0.80 - 1.30 mg/dL [facility] Glucose 90 70 - 199 mg/dL [facility] Comment: Interpretive Data Fasting glucose >/= 126 [...] classification and Diagnosis of Diabetes Diabetes Care 202; 46: S19-S40. Current interpretive data was last revised 2022. Calcium 9.3 8.5 - 10.3 mg/dL [facility] Bilirubin, total 1.5(H) 0.1 - 1.2 mg/dL [facility] Protein, pl 7.4 6.5 - 8.5 g/dL [facility] Albumin 4.4 3.5 - 5.0 g/dL [facility] Alk phos 99 40 - 130 Units/L [facility] ALT 21 7 - 55 Units/L [facility] AST 24 10 - 50 Units/L [facility] Blood 05/10/2024 3:58 PM CDT 05/10/2024 4:12 PM CDT Dorothy Phipps NP LAB BLOOD ORDERABLES Final R esult Performing Organization Address City/[facility]/ZIP Co de Phone Number [facility] [place] [address] * Hepatitis C antibody (01/26/2022 4:00 PM MANAGEMENT RECRUITER) Hep C Ab Nonreactive Nonreactive [facility] Comment:Antibodies to HCV no t detected. Does NOT exclude the possibility of recent exposure to HCV. Current interpretive data was last revised on 21 Blood 01/26/2022 4:00 PM MANAGEMENT RECRUITER 01/26/2022 5:45 PM MANAGEMENT RECRUITER Nash Monterroso MD LAB MICROBIOLOGY - GEN ERAL ORDERABLES Final Result Performing Organization Address [facility] Co de Phone Number [facility] Department [place] [address] * COLONOSCOPY (03/21/2020) Pathologist [facility] Colonoscopy Abnormal Historical Provider HEALTH MAINTENANCE Final Result from Last 3 Months or Most Recently Relevant to Health Maintenance Insurance [employer] [place] [address] [employer] [place] [address] [employer] Care Teams Photoengraving Etcher Apprentice Relationship Specialty Start Date End Date Nash Monterroso MD [address] [address] PCP - General Internal Medicine 12/31/21 Dionicio Skinner DPT Physical Therapist Physical Therapy 09/13/18
--- OUTSIDE RECORDS SUMMARY | 2024-07-21 01:29 | XMS_ITS | Clinical Summary ---
Author Organization [facility] [employer] Address [address] [place] [address] Care Team Providers Care Body Technician/Painter Name Role Phone Kwan Mederos MD Unavailable [phone] Nash Monterroso MD Primary Care Provider Source Comments [facility] [employer],non-owned Affiliates and Associated Physician Practices is amultiple site organization consisting of ambulatory clinics and hospital sitesin [place], [place], [place] and [place]. This disclosure is being madepursuant to the Care Everywhere program and may not contain all information available regarding this patient. Last updated 17.[facility] [employer] [employer] Allergies No known active allergies Medications * Be aware that medications may not be up to date on this document. Alwaysverify current medications with the patient. zolpidem (AMBIEN) 5 MG tablet Take 1 (one) tablet by mouth nightly as needed INSOMNIA 2 12/19/2013 Active Active Problems Problem Noted Date Diagnosed Date Thoracic aortic aneurysm without rupture 020 Colonic adenoma 02/25/2015 Overview (02/25/2015): 02/2015. Rpt in 5 yrs. Immunizations Immunization Administration Dates Next Due INFLUENZA VACCINE, HIGH-DOSE , QUADR. (FLUZONE HIGH-DOSE QUADRIVALENT; 65Y+), 0.7 ML (HD-IIV4) 10/23/2015 Family History Medical History Relation Name Comments Stroke Maternal Grandmother Migraine Sister 4 Relation Name Status Comments Father Alive Maternal Grandmother Mother Alive Sister 1 Alive Sister 2 Alive Sister 3 Alive Sister 4 Social History Tobacco Use Types Packs/Day Years Used Date Smoking Tobacco: Never Smokeless Tobacco: Never Tobacco Cessation:Counseling Given: Not Answered Alcohol Use Standard Drinks/Week Comments Yes 1 (1 standard drink = 0.6 oz pur e alcohol) PHQ-2 Answer Date Recorded PHQ2 TOTAL SCORE 0 10/01/2021 Sex and Gender Information Value Date Recorded Sex Assigned at Not on file Legal Sex Male 6:21 AM LIVESTOCK NUTRITION TERRITORY MANAGER Gender Identity Not on file Sexual Orientation Not on file Last Filed Vital Signs Vital Sign Reading Time Taken Comments Blood Pressure 140/94 03/10/2023 3:04 PM LIVESTOCK NUTRITION TERRITORY MANAGER Pulse 70 03/10/2023 3:04 PM LIVESTOCK NUTRITION TERRITORY MANAGER Temperature 36.9 C (98.4 F) 10/01/2021 12:41 PM CDT Respiratory Rate 16 03/21/2020 8:05 AM LIVESTOCK NUTRITION TERRITORY MANAGER Oxygen Saturation 98% 03/21/2020 8:05 AM LIVESTOCK NUTRITION TERRITORY MANAGER Inhaled Oxygen Concentration - - Weight 74.8 kg (164 lb 12.8 oz) 03/10/2023 3:04 PM LIVESTOCK NUTRITION TERRITORY MANAGER Height 182.9 cm (6') 10/01/2021 12:41 PM CDT Body Mass Index 22.35 10/01/2021 12:41 PM CDT Plan of Treatment Upcoming Encounters Date Type Department Care Team (Late st Contact Info) Description 02/22/2025 11:15 AM LIVESTOCK NUTRITION TERRITORY MANAGER Office Visit [facility] [address] [place] [address] [address] [place], [place] [id number] Kwan Mederos MD [address] [place] [address] [address] [place], [place] [id number] Health Maintenance Due Date Last Done Comments COLOGUARD (AGES 45-75) - COLON CA SCREENING 1965 CT COLONOGRAPHY - COLON CA SCREENING 1965 FIT - COLON CA SCREENING 1965 FLEX SIG - COLON CA SCREENING 1965 HIV SCREENING 01/15/1980 HEPATITIS C SCREENING 01/10/1983 DTAP/TDAP/TD VACCINES (1 - Tdap) 01/15/1984 HEPATITIS B VACCINE (1 of 3 - 19+ 3-dose series) 01/15/1984 PNEUMOCOCCAL VACCINE 50+ (1 of 1 - PCV) 2015 ZOSTER VACCINE (1 of 2) 2015 COVID-19 VACCINE ( season) 2023 06/05/2020, 05/15/2020 DEPRESSION SCREENING 02/16/2024 10/01/2021 INFLUENZA VACCINE (Season Ended) 2024 12/03/2021, 01/06/2021, 11/19/2019, Additional history exists COLON MONITORING 03/21/2025 03/21/2020, 05/2020, 03/21/2020, Additional history exists Colorectal Cancer Screening 03/21/2025 LIPID TESTING 01/26/2027 01/26/2022, 04/16, 05/12/2021, Additional history exists COLONOSCOPY - COLON CA SCREENING 03/21/2030 03/21/2020, 03/21/2020, 03/21/2020, Additional history exists HIB VACCINE Aged Out No longer eligi ble based on patient's age to complete this topic HPV VACCINE Aged Out No longer eligi ble based on patient's age to complete this topic MENINGOCOCCAL (Group B) VACCINE SHARED DECISION-MAKING Aged Out No longer eligible based on patient's age to complete this topic MENINGOCOCCAL GROUPS A/C/Y/W VACCINE Aged Out No longer eligible based on patient's age to complete this topic Procedures Procedure Name Priority Date/Time Associated Diagnosis Comments ENDOSCOPY, COLON, SCREENING Routine 03/21/2020 6:48 AM LIVESTOCK NUTRITION TERRITORY MANAGER Hx of colonic polyps LIPID PROFILE Routine 04/06/2014 7:54 AM LIVESTOCK NUTRITION TERRITORY MANAGER Routine general medical examination at a health care facility from Last 3 Months or Most Recently Relevant to Health Maintenance Results * ENDOSCOPY, COLON, SCREENING (03/21/2020 6:48 AM LIVESTOCK NUTRITION TERRITORY MANAGER) Report Endoscopy POC _ Patient Name: Sal Bauer Procedure Date: 03/21/2020 6:48 AM Date of : 1965 Admit Type: Outpatient Age: 55 Gender: Male Ethnicity: Not or Race: White Attending MD: Yung Carranza , _ Procedure: Colonoscopy Indications: Surveillance: Personal history of adenomatous polyps on last colonoscopy 5 years ago Providers: Yung Carranza (Doctor), Juanita Hameed, Obstetrical Nurse Patient Profile: 55M presents for surveillance colonoscopy. last exam 5 yrs prior Referring MD: RYAN YOUNG MD (Referring MD) Medicines: Monitored Anesthesia Care Complications: No immediate complications. _ Procedure: Pre-Anesthesia Assessment: - Prior to the procedure, a History and Physical was performed, and patient medications and allergies were reviewed. The patient's tolerance of previous anesthesia was also reviewed. The risks and benefits of the procedure and the sedation options and risks were discussed with the patient. All questions were answered, and informed consent was obtained. Prior Anticoagulants: The patient has taken no previous anticoagulant or antiplatelet agents. ASA Grade Assessment: II - A patient with mild systemic disease. After reviewing the risks and benefits, the patient was deemed in satisfactory condition to undergo the procedure. After I obtained informed consent, the scope was passed under direct vision. Throughout the procedure, the patient's blood pressure, pulse, and oxygen saturations were monitored continuously. The Colonoscope was introduced through the anus and advanced to the cecum, identified by appendiceal orifice and ileocecal valve. The colonoscopy was performed without difficulty. The patient tolerated the procedure well. The quality of the bowel preparation was adequate to identify polyps 6 mm and larger in size. Impression: - Two 4 to 5 mm polyps in the sigmoid colon, removed with a cold biopsy forceps. Resected and retrieved. Findings: The perianal and digital rectal examinations were normal. Two sessile polyps were found in the sigmoid colon. The polyps were 4 to 5 mm in size. These polyps were removed with a cold biopsy forceps. Resection and retrieval were complete. No additional abnormalities were found on retroflexion. _ Recommendation: - Patient has a contact number available for emergencies. The signs and symptoms of potential delayed complications were discussed with the patient. Return to normal activities tomorrow. Written discharge instructions were provided to the patient. - Resume previous diet. - Continue present medications. - Repeat colonoscopy in 5 years for surveillance based on pathology results. Procedure Code(s): --- Professional --- 51641, Colonoscopy, flexible; with biopsy, single or multiple --- Technical --- 37235, Colonoscopy, flexible; with biopsy, single or multiple Diagnosis Code(s): --- Professional --- Z86.010, Personal history of colonic polyps K63.5, Polyp of colon --- Technical --- Z86.010, Personal history of colonic polyps K63.5, Polyp of colon CPT copyright 2019 [employer]. All rights reserved. The codes documented in this report are preliminary and upon medical biller/coder review may be revised to meet current compliance requirements. Yung Carranza, 03/21/2020 7:55:06 AM This report has been signed electronically. Number of Addenda: 0 Note Initiated On: 03/21/2020 6:48 AM [facility] ENDOSCOPY 03/21/2020 6:48 AM LIVESTOCK NUTRITION TERRITORY MANAGER Narrative Procedure Note Yung Carranza MD - 03/21/2020 7:55 AM CST Colonoscopy 2 sigmoid colon polyps resected Prior hx adenomas Surveillance 5 yrs pending path D/w kallie us Yung Carranza MD GI PROCEDURE ORDERABLES Edited R esult - Final [facility] ENDOSCOPY * LIPID PROFILE (LIPID PANEL) (04/06/2014 7:54 AM LIVESTOCK NUTRITION TERRITORY MANAGER) Cholesterol 160 100 - 199 mg/dL [facility] ACCOUNT BILL Triglycerides 79 0 - 149 mg/dL [facility] ACCOUNT BILL HDL Cholesterol 75 >39 mg/dL [facility] ACCOUNT BILL Comment: According to ATP-III Guidelines, HDL-C >59 mg/dL is considered a negative risk factor for CHD. VLDL Calculated 16 5 - 40 mg/dL [facility] ACCOUNT BILL LDL Calculated 69 0 - 99 mg/dL [facility] ACCOUNT BILL Comment NOT NEEDED [facility] ACCOUNT BILL Comment:Ancillary determined the test is not needed Blood specimen (specimen) BLOOD SPECIMEN / Unknown 04/06/2014 7:54 AM LIVESTOCK NUTRITION TERRITORY MANAGER 04/06/2014 12:28 PM LIVESTOCK NUTRITION TERRITORY MANAGER Narrative Resulting Agency Comment [facility] [address] [facility] [id number] us Elvis Gonzalez MD LAB - CHEMISTRY ORDERABLES Final Result Performing Organization Address City/[facility]/ZIP Co de Phone Number [facility] ACCOUNT BILL [address] [place] [address] from Last 3 Months or Most Recently Relevant to Health Maintenance Insurance [facility] Care Teams Body Technician/Painter Relationship Specialty Start Date End Date Nash Monterroso MD [address] [address] PCP - General Internal Medicine 03/10/23 Kwan Mederos MD [facility] [facility] [address] [place] [address] [facility]iology 02/07/20
--- OUTSIDE RECORDS SUMMARY | 2024-07-21 01:30 | XMS_ITS | Patient Health Record ---
Author Organization [facility] Address [address] [place], [place] [id number] Care Team Providers Care Railroad Track Mechanic Name Role Phone Odell Harrison Primary Care Provider Krish Huston [phone] Allergies No Known Allergies Reason For Referral No Information Problems Problem Type SNOMED Code ICD Code Onset Dates Problem Status W/U Status Risk Notes Problem Sensorineural hearing loss of bilateral ears (disorder) (689213365) Sensorineural hearing loss, bilateral (H90.3) Active confirmed Problem Sensorineural hearing loss of right ear with normal hearing on left side (disorder) (2713903354) Sensorineural hearing loss, unilateral, right ear, with unrestricted hearing on the contralateral side (H90.41) Active confirmed Problem Tinnitus (27688398) Tinnitus, right ear (H93.11) Active confirmed Problem Bilateral tinnitus (3385660232039) Tinnitus, bilateral (H93.13) Active confirmed Plan Of Treatment No Information Insurance Providers Payer Name Payer Address Payer Phone Subscriber Number Group Number Insured Name Patient Relationship to Insured Coverage Start Date Coverage End Date [facility] [address] [address] [place] [id number] Shay Henderson Self - patient is the insured Medical (General) History Medical History History ICD Code Pertinent Medical History: None, Surgical History Surgery Date(Month/Year) Tonsilectomy
--- NOTE | 2024-07-21 12:09 | WPDHPUPDATE1 ---
History and Physical Update Update Date/Time: 07/21/24 12:09 History and Physical has been reviewed, including an updated exam of the patient. There are NO changes in the patient's condition. Risks, benefits, and alternatives have been discussed and questions answered. Patient agrees to proceed with procedure.
[2024-07-21] MEDS: ACETAMINOPHEN 500 MG TABLET 1000 MG PO (14:25)
[2024-07-21] MEDS: KETOROLAC 15 MG/ML VIAL (*BKC) IV PUSH (14:26)
[2024-07-21] MEDS: ceFAZolin 2 GM/D5W 50 ML 2 GM/50 ML BAG IVPB (14:40)
[2024-07-21] MEDS: BUPIVACAINE/EPINEPHRINE 0.5% 50 ML VIAL 20 ML INFILTRATE (14:57)
[2024-07-21] MEDS: LACTATED RINGERS 1,000 ML 30 ML IV CONT ×2 (15:29→15:50)
--- NOTE | 2024-07-21 17:24 | W.PM.PROC2 ---
Procedure Note - Detailed Date of Procedure 07/21/24 Pre-op Diagnosis Right knee lateral meniscus tear Post-op Diagnosis Same Procedure Performed Arthroscopic partial lateral meniscectomy, right knee. Surgeon Ramon Cortez MD Anesthesia General Findings Extensive unstable flap tear of the posterior lateral meniscus. Subtotal meniscectomy to a stable rim. ACL intact. Medial compartment normal. Patella normal. 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 Medial femur chondromalacia grade 0, medial tibia grade 0. Lateral femur chondromalacia grade 3, lateral tibia grade 3. Patellar grade 0, trochlea grade 2/3. Description of Procedure The patient was identified and the surgical site confirmed and signed in the preoperative holding area. Antibiotics were started per protocol, and the patient was brought to the operative room and transferred to the OR table. A general anesthetic was administered. Supine position with the operative lower extremity position in the leg ahn after placement of a well padded tourniquet. The leg support was lowered and the contralateral limb was supported with a soft bolster. The knee was prepped and draped in the usual sterile fashion. A time-out was performed. The portal sites were marked and infiltrated with 0.5% Marcaine 20 mL. The limb was exsanguinated and the tourniquet inflated to 300 mL Hg. Standard inferolateral and inferomedial portals were established. Inflow was obtained with the saline pump. The camera was introduced. Diagnostic inspection of the joint was accomplished. The meniscus was debrided with the arthroscopic shaver and punches until stable. The radiofrequency probe was also used for further d?bridement. Gentle chondroplasty was performed on the lateral tibial plateau. The arthroscopic instruments were removed. The tourniquet released and wounds closed with subcutaneous 4-0 Monocryl absorbable suture. Steri strips and a sterile dressing were applied. A light elastic wrap was placed. The patient was extubated and brought to the recovery room in stable condition. Estimated Blood Loss 5 Tourniquet Time Total Tourniquet Time: 19 Drains No Complications No immediate complications Condition Stable Disposition PACU [facility] Billing Surgery - Charge Forward: Surgery Billing
--- NOTE | 2024-07-25 07:34 | P.PNAN_ITS ---
Anes - Initial Pre Proc Eval Procedure: Operation Date: 07/21/24 15:00 Proposed Procedures p Right Knee Arthroscopic Partial Lateral Meniscectomy - Ramon Cortez MD Date/Time: 07/25/24 07:34 Surgeon: Ramon Cortez MD Pre Op Diagnosis: right knee lateral meniscus tear Patient Data Age: 59 Gender: M Height: 1.83 m Weight: 71.3 kg Last Vital Signs Temp 36.2 C L 07/21/24 15:29 Pulse 59 L 07/21/24 17:15 Resp 18 07/21/24 17:15 BP 154/87 H 07/21/24 17:15 Pulse Ox 95 07/21/24 16:30 O2 Del Method Room Air 07/21/24 17:15 O2 Flow Rate 8 07/21/24 16:00 Allergies Allergy/AdvReac Type Severity Reaction Status Date / Time No Known Allergies Allergy Unverified 07/21/24 14:18 Home Medications ?Medication ?Instructions ?Recorded ?Confirmed ?Type calcium citrate 250 mg PO DAILY 07/19/24 07/21/24 History glucosamine HCl 500 mg tablet 500 mg PO DAILY 07/19/24 07/21/24 History zolpidem 5 mg tablet (Ambien) 5 mg PO QHS 07/19/24 07/19/24 History hydrocodone 5 mg-acetaminophen 325 1 - 2 tablet PO Q4-6H PRN pain 7 07/21/24 Rx mg tablet days #30 tabs Patient hx anesthesia problems: none Family hx anesthesia problems: none Results Review: All pre-operative results and documents have been reviewed as part of the pre- operative evaluation. [facility] Surgical History Surgical History History of Achilles tendon repair (~2021) Left Social History Social History Smoking status: Never smoker Alcohol intake: current Drinks per week: 6 Do You Feel Safe in your Home?: Yes Lack of Transportation: No Lack of Food: Never True Current Housing: I Have Housing Concerned About Future Housing: No Difficulty Paying Gas/Electric Bills: No Difficulty Paying for Meds: No Currently Unemployed: No Education: Master's Degree or Higher Difficulty w/ Childcare or Family Care: No Living arrangements: with family Spiritual care concerns: No Anes - Eval Final PreProcedure Day of Procedure 07/25/24 07:34 Patient weight: normal Heart: regular rate and rhythm Lungs: clear to auscultation Neurological: alert and oriented ASA classification: I Emergent: no Anesthetic plan: proceed Anesthesia type and monitoring: general Results Review: All pre-operative results and documents have been reviewed as part of the pre- operative evaluation. Informed Consent: The patient's anesthetic plan and its attendant risks and benefits were discussed with the patient/family/POA. Questions were solicited and answers provided to the satisfaction of the patient/family/POA.
== END 2024-07-21 17:36 | disposition home or self-care (01) ==
PROVIDERS: PCP Student in an Organized Health Care Education/Training Program; Visit Provider Orthopaedic Surgery
PROC: (CPT 29870; principal; 2024-07-21 15:00)
DX: S83.281A Other tear of lateral meniscus, current injury, right knee, initial encounter (principal); M94.261 Chondromalacia, right knee; X50.1XXA Overexertion from prolonged static or awkward postures, initial encounter; Z79.891 Long term (current) use of opiate analgesic; Z98.890 Other specified postprocedural states
CPT/HCPCS: 29881; A9270; J0690; J1100; J1885; J2250; J2405; J2704; J3010; J7120